=== PATIENT | female | born 1950 | race Two or more races ===

== ENCOUNTER 2021-10-14 15:29 | Outpatient (CLI) | payer MEDICAID, SELFPAY ==
[2021-10-14 16:09] LABS: Appearance Urine Clear (Clear); Bilirubin Urine Negative (Negative); Blood Urine Negative (Negative); Color Urine Yellow (Yellow); Glucose Urine UA Negative (Negative); Ketones Urine Negative (Negative); Leukocyte Esterase Ur Trace LEU/UL (Negative); Nitrate Urine Negative (Negative); Protein Urine Negative (Negative); Specific Grav Ur >= 1.030 (1.001-1.035); Urobilinogen Urine 0.2 mg/dL (<2.0)
[2021-10-14 16:15] LABS: Bacteria Urine Trace /hpf; Mucus Urine Rare /lpf; Squamous Epithelial Cell Urine Moderate /hpf (Few); WBC Urine 0-3 /hpf
[2021-10-14 16:15] LABS: Alanine Aminotransferase 20 U/L (4-35); Alkaline Phosphatase 83 U/L (38-126); Anion Gap 7 mmol/L (8-16); Aspartate Amino Transferase 28 U/L (14-36); Bilirubin,Total 0.2 mg/dL (0.2-1.3); Blood Urea Nitrogen 18 mg/dL (7-17); Calcium 10.2 mg/dL (8.4-10.2); Carbon Dioxide 24 mmol/L (22-30); Chloride 106 mmol/L (98-107); Cholesterol 153 mg/dL (0-200); Estimated Glomerular Filt Rate > 60; Glucose 122 mg/dL (65-110); HDL Direct 52 mg/dL; Potassium 4.4 mmol/L (3.4-5.0); Sodium 137 mmol/L (137-145); Triglycerides 140 mg/dL (<150)
[2021-10-14 16:16] LABS: Basophils Absolute Auto 0.1 K/mm3 (0.0-0.1); Basophils Percent Auto 1.2 % (0.2-1.2); Eosinophils Absolute Auto 0.2 K/mm3 (0-0.3); Eosinophils Percent Auto 2.8 % (0-4.4); Hematocrit 31.8 % (37.0-47.0); Hemoglobin 9.8 g/dL (12.0-15.0); Immature Granulocyte Absolute 0.02 K/mm3 (0.00-0.031); Immature Granulocyte Percent A 0.3 % (0-0.5); Lymphocytes Absolute Auto 1.75 K/mm3 (0.9-3.2); Lymphocytes Percent Auto 28.8 % (18.3-44.2); Mean Corpuscular HGB Conc 30.8 g/dl (32-36); Mean Corpuscular Hemoglobin 27.8 pg (26-34); Mean Corpuscular Volume 90.1 fl (80-100); Mean Platelet Volume 9.9 fl (7.4-10.4); Monocytes Absolute Auto 0.6 K/mm3 (0.1-0.6); Monocytes Percent Auto 9.2 % (2.6-8.5); Neutrophils Absolute Auto 3.5 K/mm3 (1.3-6.7); Neutrophils Percent Auto 57.7 % (45.5-73.1); Platelet Count Result 336 k/mm3 (150-375); Red Blood Count 3.53 M/mm3 (4.2-5.4); Red Cell Distribution Width 13.7 % (11.5-14.5); White Blood Count 6.1 K/mm3 (4.5-10.0)
[2021-10-14 16:24] LABS: NT Pro B Type Natriuretic Pept 361 pg/mL (5-100)
[2021-10-14 16:25] LABS: Add Urine Microscopic? YES
[2021-10-14 16:27] LABS: LDL Cholesterol Direct 60 mg/dL
[2021-10-14 16:32] LABS: T4 Thyroxine 9.13 ug/dL (5.53-11.0)
[2021-10-14 16:43] LABS: Creatinine Urine 128.5 mg/dL
[2021-10-14 16:47] LABS: MALB Creatinine Ratio 5.5 mg/g (0-30); Microalbumin Urine Random 7.1 mg/L (0-16.7)
[2021-10-14 17:15] LABS: Erythrocyte Sedimentation Rate 20 mm/hr (0-20)
[2021-10-14 17:22] LABS: Folic Acid 10.5 ng/mL (2.76->20)
[2021-10-14 17:39] LABS: Hemoglobin A1C 6.7 % (<5.7)
[2021-10-14 18:29] LABS: Iron 60 ug/dL (37-170)
[2021-10-14 18:37] LABS: Percent Iron Saturation 13 % (20-50)
== END 2021-10-14 15:30 | disposition home or self-care (01) ==
LOC: ANHLAB 15:32
PROVIDERS: PCP Internal Medicine; Visit Provider Internal Medicine
DX: J45.909 Unspecified asthma, uncomplicated (principal); I26.99 Other pulmonary embolism without acute cor pulmonale; I11.0 Hypertensive heart disease with heart failure; E11.9 Type 2 diabetes mellitus without complications; Z13.9 Encounter for screening, unspecified; I50.9 Heart failure, unspecified; R06.02 Shortness of breath
CPT/HCPCS: 36415; 80053; 80061; 81001; 82043; 82306; 82607; 82728; 82746; 83036; 83540; 83550; 83880; 84436; 84443; 85025; 85652

== ENCOUNTER 2021-10-17 13:41 | Outpatient (CLI) | payer MEDICAID, SELFPAY ==
--- NOTE | ~2021-10-17 | XR_ITS ---
EXAMINATION: XR chest 2V DATE: 10/17/2021 14:01 INDICATION: Shortness of breath TECHNIQUE: PA and lateral views of the chest are obtained. COMPARISON: None available FINDINGS: The lungs are free of acute opacities. There is no pleural effusion or pneumothorax. The he art size is normal. There is a hiatal hernia. There is moderate thoracic and severe lumbar spondylosi s. IMPRESSION: 1. No acute cardiopulmonary abnormality. Reviewed, dictated and finalized at location F.
== END 2021-10-17 13:42 | disposition home or self-care (01) ==
LOC: ANHIMG 13:45
PROVIDERS: PCP Internal Medicine; Visit Provider Internal Medicine
DX: R06.02 Shortness of breath (principal)
CPT/HCPCS: 71046

== ENCOUNTER 2023-01-16 14:04 | Outpatient (CLI) | payer OTHER, SELFPAY ==
--- NOTE | ~2023-01-16 | CT_ITS ---
CT Scan of the Chest without Contrast: Clinical Indication: Pulmonary fibrosis, pulmonary hypertension Technique: Contiguous sections were acquired throughout the chest without intravenous contrast. Dose reduction technique was used on this scan by utilizing automated exposure control and iterative recon struction technique. The dose-length product (DLP) was 887.80 mGy-cm. Findings: There is no evidence of any significant mediastinal, hilar or axillary lymphadenopathy. Atherosclerot ic calcifications of the aorta and coronary arteries are present. Cardiomegaly present. There is no evidence of pleural or pericardial effusion. There is linear scarring or atelectasis left upper lobe. No other pulmonary abnormality seen. Images through the upper abdomen reveal no abnormalities. Impression: Linear scarring or atelectasis left upper lobe, otherwise clear lungs. Cardiomegaly with atherosclerotic calcifications, as above. Reviewed, dictated and finalized at location . Impression: Linear scarring or atelectasis left upper lobe, otherwise clear lungs. Cardiomegaly with atherosclerotic calcifications, as above.
== END 2023-01-16 14:05 | disposition home or self-care (01) ==
LOC: CHSIMG 14:05
PROVIDERS: PCP Internal Medicine; Visit Provider Internal Medicine
DX: J84.10 Pulmonary fibrosis, unspecified (principal); I27.20 Pulmonary hypertension, unspecified; J45.20 Mild intermittent asthma, uncomplicated; R91.8 Other nonspecific abnormal finding of lung field; I51.7 Cardiomegaly
CPT/HCPCS: 71250